=== PATIENT | female | born 1940 | race Caucasian/White ===

== ENCOUNTER 2020-04-09 11:45 | Emergency (ER) | payer MEDICARE, OTHER ==
[~2020-04-09] VITALS: Ht 162.6 cm; Wt 97.1 kg
--- OUTSIDE RECORDS SUMMARY | 2020-04-09 11:48 | XMS ---
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 E.John. VISIT COUNT (12 MO.) [address] [place], [place] [address]Jose [address] [place] [address] TOTAL 8 NOTE: Visits indicate total known visits. ED/UCC VISIT TRACKING (12 MO.) 04/09/2020 11:45 PAUL Marti TYPE: Emergency COMPLAINT: - GLF, R HIP PAIN 03/19/2020 14:18 [facility] MATTHE[facility] TYPE: Emergency DIAGNOSES: - Abnormal Lab - Anemia, unspecified - poss GI bleed 03/05/2020 14:21 [facility] [place] TYPE: Emergency DIAGNOSES: - Wound Check - paracentecis complications - Encounter for other specified aftercare 02/27/2020 11:14 [facility] [place] TYPE: Emergency DIAGNOSES: - needing paracentesis - Shortness of Breath - Other ascites 01/22/2020 10:09 [facility] [place] TYPE: Emergency DIAGNOSES: - Unspecified cirrhosis of liver - Essential (primary) hypertension - Thrombocytopenia, unspecified - Altered Mental Status - nausea/shakes/weakness - Weakness - Hypo-osmolality and hyponatremia - Other ascites - Anemia, unspecified - Hepatic failure, unspecified without coma - Chest pain, unspecified - Weakness 12/30/2019 23:58 [facility] MATTHEWS TYPE: Emergency DIAGNOSES: - Hypo-osmolality and hyponatremia - Unspecified atrial fibrillation - Weakness - Unspecified cirrhosis of liver - Other ascites - Weakness 12/08/2019 14:22 [facility] MATTHE[place] TYPE: Emergency DIAGNOSES: - fall, bailey - Fall 06/30/2019 08:43 [facility]THEWS TYPE: Emergency DIAGNOSES: - Unspecified cirrhosis of liver - poss pneumonia - Cough - Acute kidney failure, unspecified - Other ascites - Lobar pneumonia, unspecified organism - Obesity, unspecified - Sepsis, unspecified organism - Severe sepsis without septic shock - Dependence on other enabling machines and devices - Obstructive sleep apnea (adult) (pediatric) - Chest Pain - Shortness of Breath - Chronic kidney disease, stage 3 (moderate) INPATIENT VISIT TRACKING (12 MO.) 01/22/2020 10:09 [facility]gy MATTHEWS TYPE: Surgical Services DIAGNOSES: - Thrombocytopenia, unspecified - Other ascites - Anemia, unspecified - Unspecified cirrhosis of liver - Hypo-osmolality and hyponatremia - Hepatic failure, unspecified without coma - Essential (primary) hypertension - Weakness - Chest pain, unspecified [facility] DIAGNOSES: - Fall - Unspecified fall, initial encounter - Hypo-osmolality and hyponatremia - Contusion of other part of head, initial encounter - Hepatic failure, unspecified without coma - Unsteadiness on feet - Hypotension, unspecified 06[facility]2019 08[facility] DIAGNOSES: - Other ascites - Acute kidney failure, unspecified - Chronic kidney disease, stage 3 (moderate) - Acute on chronic diastolic (congestive) heart failure - Severe sepsis without septic shock - Dependence on other enabling machines and devices - Obesity, unspecified - Esophageal varices without bleeding - Chronic kidney disease, unspecified - Unspecified cirrhosis of liver - Gastro-esophageal reflux disease without esophagitis - Sepsis, unspecified organism - Obstructive sleep apnea (adult) (pediatric) - Essential (primary) hypertension - Lobar pneumonia, unspecified organism - Nonalcoholic steatohepatitis (OVIEDO) [email or web address]
[2020-04-09] MEDS ORDERED: NORCO 5-325 TA1 EACH PO (12:44)
[2020-04-09] MEDS ORDERED: ZOFRAN4 MG PO (12:45)
== END 2020-04-09 15:25 | disposition home or self-care (01) ==
LOC: ED 11:45
DX: S32.592A Other specified fracture of left pubis, initial encounter for closed fracture (principal); W01.198A Fall on same level from slipping, tripping and stumbling with subsequent striking against other object, initial encounter; Z87.891 Personal history of nicotine dependence
CPT/HCPCS: 73502; 96374; 97162; 97530; 99283-25; J2405